=== PATIENT | male | born 1965 | race African-American/Black ===

== ENCOUNTER 2016-11-11 19:34 | Emergency (ER) | payer MEDICARE, MEDICAID ==
[2016-11-11] MEDS ORDERED: METOPROLOL TART 25 MG TABLET As Ordered ONE (20:26)
[2016-11-11 20:36] LABS: MEAN CORPUSCULAR HEMOGLOBIN 29.3 pg (27.0-33.0); MEAN CORPUSCULAR HGB CONC 33.5 g/dl (32.0-36.5); MEAN CORPUSCULAR VOLUME 87.5 fl (80.0-96.0); RED CELL DISTRIBUTION WIDTH 14.2 % (11.5-14.5)
[2016-11-11 20:43] LABS: INR 0.94
[2016-11-11] MEDS ORDERED: MORPHINE 4 MG/ML 1ML SYRINGE As Ordered ONE ×2 (20:56→23:19)
[2016-11-11 20:59] LABS: ANION GAP 9 MEQ/L (8-16); BLOOD UREA NITROGEN 10 MG/DL (7-18); CALCIUM LEVEL 8.4 MG/DL (8.5-10.1); CARBON DIOXIDE LEVEL 26 MEQ/L (21-32); CHLORIDE LEVEL 107 MEQ/L (98-107); CREATININE FOR GFR 0.88 MG/DL (0.70-1.30); GLOMERULAR FILTRATION RATE > 60.0 (>56); GLUCOSE, FASTING 109 MG/DL (70-105); POTASSIUM SERUM 3.3 MEQ/L (3.5-5.1); SODIUM LEVEL 142 MEQ/L (136-145)
[2016-11-11] MEDS ORDERED: ISOVUE-370 76% 100ML VIAL (Q9967) As Ordered ONE (21:56)
[2016-11-11] MEDS ORDERED: POTASSIUM CHLORIDE 10 MEQ SR TABLET As Ordered ONE (22:11)
--- NOTE | 2016-11-11 23:10 | REPUSA ---
CT angiogram of the chest Clinical statement: Chest pain and shortness of breath. Technique: Multiple axial CT images were obtained from the thoracic inlet through the upper abdomen a fter a bolus administration of nonionic intravenous contrast. Coronal and sagittal reconstructions we re also obtained. No comparison is available. Findings: The pulmonary arteries are well-opacified with contrast, with no intraluminal filling defec ts to suggest embolism. The thoracic aorta is unremarkable. Thyroid gland is within normal limits. Th ere is no thoracic lymphadenopathy. There are no pericardial or pleural effusions. The lungs are cheryl r. Limited imaging of the upper abdomen is unremarkable. There are large simple bilateral renal cysts . There are no suspicious osseous lesions. Impression: Unremarkable CT examination of the chest. No evidence of pulmonary embolism.
--- NOTE | 2016-11-11 23:19 | REP ---
Clinical: Chest pain . Comparison: None. Findings: The mediastinum and cardiac silhouette are stable and within normal limits for portable technique. The lung guerra are clear without acute consolidation, effusion, or pneumothorax. Skeletal structures are intact. Impression: No acute consolidation or cardiopulmonary process appreciated. Signed by Victor M Smith MD 11/11/2016 11:11 P
[2016-11-12] MEDS ORDERED: HYDROmorphone HCL 1 MG/ML SYRINGE (J1170) As Ordered ONE (01:13)
[2016-11-12] MEDS ORDERED: cloNIDine 0.2 MG TAB As Ordered ONE (06:02)
--- NOTE | 2016-11-12 06:26 | EDDOCDS ---
Physician Documentation [facility] Name: Robinson Barajas Age: 51 yrs Sex: Male : 1965 Arrival Date: 11/11/2016 Time: 19:34 Bed OBSERVATION Private MD: Disposition: 11/12/16 04:53 Discharged to Home/Self Care. Impression: Chest pain, unspecified, Unspecified mood [affective] disorder. - Condition is Stable. - Medication Reconciliation, Local Pharmacy Hours form. - Follow up: Private Physician; When: Call to arrange an appointment; Reason: Recheck today's complaints. - Problem is chronic. - Symptoms have improved. Historical: - Allergies: Geodon; Latex, Natural Rubber; Nitroglycerin; Tylenol; Motrin; Prolixin; turkey (Anaphylaxis); - Home Meds: 1. aspirin 81 mg Oral TbEC 1 tab once daily 2. Coreg 25 mg Oral tab 1 tab 2 times per day 3. Ativan 1 mg Oral tab 1 tab 3 times per day 4. Celexa 20 mg Oral tab 1 tab once daily - PMHx: Depression; Hypertension; Anxiety; - PSHx: umbilical hernia repair; - Social history: Smoking status: Patient uses tobacco products, heavy tobacco smoker. No barriers to communication noted, The patient speaks fluent Irish, Speaks appropriately for age. - Family history: Not pertinent. - : The pt / caregiver states he / she is not on anticoagulants. Home medication list is obtained from the patient. - Exposure Risk Screening:: None identified. Vital Signs: 11/11 19:37 BP 218 / 106; Pulse 90; Resp 18; Temp 97.1; Pulse Ox 98% on R/A; Weight 176.9 kg / 390 dem1 lbs; Height 6 ft. 3 in. (190.50 cm) (R); Pain 6/10; 19:53 BP 166 / 94 (auto/); af2 19:55 Pulse 76 MON; Pulse Ox 95% ; af2 20:18 BP 161 / 77 (auto/); af2 20:18 Pulse 78 MON; af2 20:23 BP 150 / 73 (auto/); af2 20:26 Pulse 84 MON; Pulse Ox 97% ; af2 20:43 Pulse 78 MON; Pulse Ox 95% ; af2 20:43 BP 179 / 98 (auto/); af2 20:53 BP 171 / 104 (auto/); af2 20:54 Pulse 78 MON; Resp 18 S; Pulse Ox 95% on R/A; af2 21:08 BP 171 / 109 (auto/); af2 21:09 Pulse 74 MON; Resp 18 S; Pulse Ox 95% on R/A; af2 22:14 BP 176 / 115 (auto/); af2 22:15 Pulse 68 MON; Resp 18 S; Pulse Ox 96% on R/A; af2 22:29 BP 158 / 77 (auto/); af2 22:30 Pulse 68 MON; Resp 18 S; Pulse Ox 96% on R/A; af2 22:44 BP 181 / 101 (auto/); af2 22:45 Pulse 68 MON; Resp 18 S; Pulse Ox 96% on R/A; af2 22:59 BP 179 / 102 (auto/); af2 23:00 Pulse 68 MON; Pulse Ox 95% ; af2 23:14 BP 178 / 113 (auto/); af2 23:14 Pulse 70 MON; af2 23:29 BP 176 / 91 (auto/); af2 23:29 Pulse 66 MON; af2 23:44 BP 170 / 89 (auto/); af2 23:45 Pulse 66 MON; Resp 18 S; af2 23:59 BP 169 / 102 (auto/); af2 01 00:00 Pulse 66 MON; af2 00:14 BP 170 / 104 (auto/); af2 00:15 Pulse 68 MON; af2 00:29 BP 169 / 107 (auto/); af2 00:30 Pulse 68 MON; af2 06:05 BP 198 / 102; Pulse 67; Resp 18; Pulse Ox 96% on R/A; slm 06:24 BP 187 / 99; slm 11/11 19:37 Body Mass Index 48.75 (176.90 kg, 190.50 cm) dem1 MDM: 11/11 19:40 ECG WITH READING ER PHYS+CARDIAG ordered. EDMS 19:43 IV Saline Lock ordered. cs11 19:44 CBC Ordered. EDMS 19:44 MED Profile Ordered. EDMS 19:44 Pt & Aptt Ordered. EDMS 19:44 Cardiac Marker Panel Ordered. EDMS 19:45 Chest, 1 View Ordered. EDMS 20:18 Metoprolol (Tartrate) 25 mg PO once ordered. cs11 20:55 morphine 4 mg IVP once ordered. cs11 21:26 MED Profile Reviewed. cs11 21:26 Pt & Aptt Reviewed. cs11 21:26 CBC Reviewed. cs11 21:26 Cardiac Marker Panel Reviewed. cs11 21:27 Potassium Chloride Extended Release Tablet 40 mEq PO once ordered. cs11 21:28 CT Chest Angio R/O PE Ordered. EDMS 21:34 Financial registration complete. zo 21:41 [facility] [place] Payment Agreement was scanned into [employer] and attached to record. zo 22:51 ECG WITH READING ER PHYS+CARDIAG ordered. EDMS 23:11 morphine 4 mg IVP once ordered. cs11 11/12 00:20 ECG WITH READING ER PHYS+CARDIAG ordered. EDMS 00:21 Cardiac Marker Panel Ordered. EDMS 01:04 Dilaudid - HYDROmorphone 1 mg IVP once ordered. cs11 01:45 Cardiac Marker Panel Reviewed. cs11 01:45 Chest, 1 View Reviewed. cs11 01:45 CT Chest Angio R/O PE Reviewed. cs11 01:46 Consult PFS/PSA/Socail Worker: Cleared medically for eval ordered. cs11 02:38 Consult PFS/PSA/Socail Worker: Cleared medically for eval complete. cl 04:59 REGULAR DIET PLASTIC RODAS+DIET ordered. EDMS 06:01 cloNIDine 0.2 mg PO once ordered. cs11 Administered Medications: 11/11 20:29 Drug: Metoprolol 25 mg [metoprolol tartrate 25 mg tablet (1 tabs)] Route: PO; af2 21:01 Drug: morphine 4 mg [morphine 4 mg/mL intravenous cartridge (1 mL)] Route: IVP; Site: af2 left antecubital; 22:17 Drug: Potassium Chloride 40 mEq [potassium chloride ER 10 mEq tablet,extended release af2 (4 tabs)] Route: PO; 23:23 Drug: morphine 4 mg [morphine 4 mg/mL intravenous cartridge (1 mL)] Route: IVP; Site: af2 left upper arm; 11/12 01:21 Drug: Dilaudid - HYDROmorphone 1 mg [hydromorphone 1 mg/mL injection syringe (1 mL)] af2 Route: IVP; Site: left upper arm; 06:04 Drug: cloNIDine 0.2 mg [clonidine HCl 0.2 mg tablet (1 tabs)] Route: PO; slm Signatures: Dispatcher [employer] EDMS Candelario Aguirre, PSA PSA cl Felice, Darius Briceno DO DO cs11 Pillo Grider,RN RN natasahb Isa Dowling,GEOTHERMAL HEAT PUMP MACHINIST GEOTHERMAL HEAT PUMP MACHINIST slm Rachna Valdes,RN RN af2 The chart was reviewed and I authenticate all verbal orders and agree with the evaluation and treatment provided.Attachments: 11/11 21:41 [facility] [place] Payment Agreement zo MTDD
--- NOTE | 2016-11-12 06:26 | EDDOCDS ---
Nurse's Notes [facility] Name: Robinson Barajas Age: 51 yrs Sex: Male : 1965 Arrival Date: 11/11/2016 Time: 19:34 Bed OBSERVATION Private MD: Diagnosis: Chest pain, unspecified;Unspecified mood [affective] disorder Presentation: 11/11 19:40 Presenting complaint: Patient states: Patient reports having chest pain which is jmb present for ten minutes with numbness down left arm. Patient reports having history of chest pain but the numbness is new. Aspirin was not taken prior to arrival. Aspirin was taken MANAGER TELEMETRY. Patient took 4 aspirin 81 mg. Adult Sepsis Screening: The patient does not have new or worsening altered mentation. Patient's respiratory rate is less than 22. Systolic blood pressure is greater than 100. Patient has a qSOFA score of 0- Negative Sepsis Screen. Suicide/Homicide risk assessment- the patient denies having any suicidal and/or homicidal ideations and does not present with any other emotional, behavioral or mental health complaints. Status: Patient is not a truck service technician or dependent. Transition of care: patient was not received from another setting of care. 19:40 Acuity: SON Level 3 jmb 19:40 Method Of Arrival: Wheelchair b Triage Assessment: 19:43 General: Appears uncomfortable, Behavior is appropriate for age, cooperative. Pain: jmb Location: chest Pain currently is 7 out of 10 on a pain scale. Pt Declines HIV testing. Neurological: Level of Consciousness is awake, alert, obeys commands, Oriented to person, place, time, Speech is normal, Facial symmetry appears normal, Facial symmetry: tongue is midline. Cardiovascular: Chest pain is described as Pain is 7 out of 10 on a pain scale. radiates to left episodes are intermittent began 30 minutes prior to arrival. Respiratory: Airway is patent Respiratory effort is even, Respiratory pattern is regular. GI: Abdomen is obese. Derm: Skin is normal. Musculoskeletal: Range of motion intact in all extremities. Historical: - Allergies: Geodon; Latex, Natural Rubber; Nitroglycerin; Tylenol; Motrin; Prolixin; turkey (Anaphylaxis); - Home Meds: 1. aspirin 81 mg Oral TbEC 1 tab once daily 2. Coreg 25 mg Oral tab 1 tab 2 times per day 3. Ativan 1 mg Oral tab 1 tab 3 times per day 4. Celexa 20 mg Oral tab 1 tab once daily - PMHx: Depression; Hypertension; Anxiety; - PSHx: umbilical hernia repair; - Social history: Smoking status: Patient uses tobacco products, heavy tobacco smoker. No barriers to communication noted, The patient speaks fluent Belizean, Speaks appropriately for age. - Family history: Not pertinent. - : The pt / caregiver states he / she is not on anticoagulants. Home medication list is obtained from the patient. - Exposure Risk Screening:: None identified. Screenin:12 Screening information is obtained from the patient. Fall risk: No risks identified. af2 Assistance ADL's: requires no assistance with activities of daily living. Abuse/DV Screen: The patient / caregiver reports he/she is: not in a situation that causes fear, pain or injury. Nutritional screening: No deficits noted. Advance Directives: Currently, there is no health care proxy. home support is adequate. Assessment: 20:10 General: Appears in no apparent distress, obese, Behavior is cooperative. Neurological: af2 Level of Consciousness is awake, alert, obeys commands, Oriented to person, place, time. Cardiovascular: Capillary refill < 3 seconds in bilateral fingers Heart tones S1 S2 present Rhythm is sinus rhythm No ectopy. Chest pain radiates to left scapula. Respiratory: Airway is patent Respiratory effort is even, unlabored, Breath sounds are diminished bilaterally. Derm: Skin is diaphoretic, Skin is normal. 21:01 General: Appears in no apparent distress, Behavior is cooperative, upon flushing piv, af2 iv noted to infiltrate. piv removed, dressing applied. . 22:00 General: Appears in no apparent distress, Behavior is cooperative. Neurological: Level af2 of Consciousness is awake, alert, obeys commands, Oriented to person, place, time. Cardiovascular: Rhythm is sinus rhythm No ectopy. Respiratory: Airway is patent Respiratory effort is even, unlabored. Derm: Skin is diaphoretic, Skin is normal. 22:28 General: pt transported down to CT at this time, tolerated procedure well. PIV patent, af2 free of edema and erythema.. 22:52 General: pt reports pain 10/10, provider aware at this time.. af2 23:30 General: pt requests "is there a psychiatrist that I can see while I am here?" pt af2 states to this law writer that he has been having "some ongoing issues with depression, I've been hearing voices, last week they were telling me to kill myself." pt denies current SI, states he continues to hear voices. Dr. Norris notified of this information. . Neurological: Level of Consciousness is awake, alert, obeys commands, Oriented to person, place, time. Cardiovascular: Rhythm is sinus rhythm No ectopy. Respiratory: Airway is patent Respiratory effort is even, unlabored. Derm: Skin is normal. 11/12 00:30 General: Appears in no apparent distress, Behavior is cooperative, pt states to this af2 law writer that his pain has not improved after morphine. dr Norris aware.. 01:30 General: Appears in no apparent distress, Behavior is cooperative. Neurological: Level af2 of Consciousness is awake, alert. Respiratory: Airway is patent Respiratory effort is even, unlabored. Derm: Skin is normal. 01:53 General: pt moved back to [facility] with belongings.. af2 02:04 General: Appears in no apparent distress, comfortable, Behavior is cooperative, slm pleasant. General: pt ambulated to bathroom requesting washcloth to wash up, pt also request food . pt calm cooperative security observing . Neurological: Level of Consciousness is awake, alert, obeys commands. Respiratory: Airway is patent Respiratory effort is even, unlabored. 03:11 General: Appears in no apparent distress, comfortable, to be sleeping. Behavior is slm cooperative, quiet. General: security observing . Respiratory: Airway is patent Respiratory effort is even, unlabored. 03:55 General: Appears in no apparent distress, comfortable, to be sleeping. Behavior is slm quiet. General: security observing. Respiratory: Airway is patent Respiratory effort is even, unlabored. 05:00 General: Appears in no apparent distress, comfortable, Behavior is appropriate for age, slm cooperative, pleasant. General: Appears obese. Neurological: No deficits noted. Respiratory: Airway is patent Respiratory effort is even, unlabored. Derm: Skin is normal. 06:05 General: Appears in no apparent distress, comfortable, Behavior is cooperative, DR clark aware of BP meds given at this time . 06:23 Reassessment: Patient appears in no apparent distress at this time. General: pt d/c at [facility] this time aware of BP pt reports he will take his B/P meds when he gets home . Neurological: Level of Consciousness is awake, alert, obeys commands, Gait is steady, Speech is normal. Respiratory: Airway is patent Respiratory pattern is regular. Mental Health Eval: 01:59 Referral Information: Evaluation referral is generated by the patient himself / cl herself. The patient was referred for evaluation because Pt initially presents to ED c/o chst pain, while receiving tx for CP pt voiced ongoing depression, recent AH/SI. . 02:40 Status: The patient is not a truck service technician or dependent. [facility]: The patient is not an established patient of [facility]. Subjective: The patients chief complaint is Pt reports he has been visiting his son at [place] since this past Tuesday, is from [facility], was at bus station last evening with intention of returning home when he began having sx's of chest pain/dizziness, son brought him to ED. Pt is pleasant and cooperative, denies SI/HI at this time, reports hx of depression/anxiety with prior psych admissions in [place] and [facility], denies any prior attempts at self harm. Pt reports feeling overwhelmed in past several months due to several stressors including of mother last month, lost 7 yo son to car accident 07/23, and stress while living with his GF whose mother has Alzheimers. Pt reports he "just needed to talk to someone" while here in ED. Pt denies SI/HI/AH/VH, denies any substance abuse issues, can easily CFS, vented well about his stressors. Pt reports his therapist at [facility] left 3 months ago and is still waiting to be assigned to new therapist, is s/w upset about this as he had good relationship with last therapist but states he will pursue this when he returns to [place]. Pt plans on catching bus later this morning to return home, has bus schedule and financial means to return home, denies any other needs/concerns at this time. . Delusions are denied. Patient's mood is anxious, Hallucinations are denied. Mental Health history: anxiety, Bipolar Disorder, depression, psychosis, Mental Health Admissions: Several in past to hospitals in [facility] and [place], also [facility]...all for "depression". Current Outpatient Mental Health Services: Therapist / Agency: [facility].. Current living environment is The patient currently lives with his / her significant other, . The patient is . Patient presents to Emergency Department with the following symptoms within the past 2 weeks: anxiety, depressed mood, sleep disturbance - erratic. Substance abuse: Pt denies. Mental status exam: Patients appearance is obese, Patient's behavior is cooperative, Speech is normal. Affect is appropriate. Mood is anxious. Hallucinations are denied. Appetite is normal. Memory is good. Energy level is tires easily. Content of thought is normal. Thought process is intact. Cognitive level is oriented to person, place, time and situation Patient's insight is good. Judgement is good. Rapport with interviewer is good. Suicidal Ideation is denied. Homicidal ideation is denied. 03:17 Disposition: Medically cleared for disposition by Darius Norris DO Psychiatric Consult cl is deferred per ED physician, Dr Norris. Disposition: The patient has a safe destination which is pt [facility], requests d/c to bus station later this morning so he can return home to [place], will f/u at [facility] where he is currently a client. [facility] Admission Criteria: Not Applicable. [place] because the patient does not display any suicidal or homicidal ideations and does not pose a risk to self or others. DSM-V Differential Diagnosis: Unspecified Anxiety Disorder (F41.9). Insurance Pre-Certification: Not Required. Vital Signs: 11/11 19:37 BP 218 / 106; Pulse 90; Resp 18; Temp 97.1; Pulse Ox 98% on R/A; Weight 176.9 kg; dem1 Height 6 ft. 3 in. (190.50 cm) (R); Pain 6/10; 19:53 BP 166 / 94 (auto/); af2 19:55 Pulse 76 MON; Pulse Ox 95% ; af2 20:18 BP 161 / 77 (auto/); af2 20:18 Pulse 78 MON; af2 20:23 BP 150 / 73 (auto/); af2 20:26 Pulse 84 MON; Pulse Ox 97% ; af2 20:43 Pulse 78 MON; Pulse Ox 95% ; af2 20:43 BP 179 / 98 (auto/); af2 20:53 BP 171 / 104 (auto/); af2 20:54 Pulse 78 MON; Resp 18 S; Pulse Ox 95% on R/A; af2 21:08 BP 171 / 109 (auto/); af2 21:09 Pulse 74 MON; Resp 18 S; Pulse Ox 95% on R/A; af2 22:14 BP 176 / 115 (auto/); af2 22:15 Pulse 68 MON; Resp 18 S; Pulse Ox 96% on R/A; af2 22:29 BP 158 / 77 (auto/); af2 22:30 Pulse 68 MON; Resp 18 S; Pulse Ox 96% on R/A; af2 22:44 BP 181 / 101 (auto/); af2 22:45 Pulse 68 MON; Resp 18 S; Pulse Ox 96% on R/A; af2 22:59 BP 179 / 102 (auto/); af2 23:00 Pulse 68 MON; Pulse Ox 95% ; af2 23:14 BP 178 / 113 (auto/); af2 23:14 Pulse 70 MON; af2 23:29 BP 176 / 91 (auto/); af2 23:29 Pulse 66 MON; af2 23:44 BP 170 / 89 (auto/); af2 23:45 Pulse 66 MON; Resp 18 S; af2 23:59 BP 169 / 102 (auto/); af2 01/06 00:00 Pulse 66 MON; af2 00:14 BP 170 / 104 (auto/); af2 00:15 Pulse 68 MON; af2 00:29 BP 169 / 107 (auto/); af2 00:30 Pulse 68 MON; af2 06:05 BP 198 / 102; Pulse 67; Resp 18; Pulse Ox 96% on R/A; slm 06:24 BP 187 / 99; slm 01/05 19:37 Body Mass Index 48.75 (176.90 kg, 190.50 cm) dem1 Vitals: 11/11 19:37 Log In Time: November 11, 2016 at 19:33. RN notified that patient meets Red Flag dem1 criteria. ED Course: 19:35 Patient visited by Wendy Levine. dem1 19:35 Patient moved to Waiting dem1 19:37 Rachna Valdes,RN is Primary Nurse. dem1 19:37 Patient moved to 10 dem1 19:41 Triage Initiated b 19:42 Darius Norris DO is Attending Physician. 11 19:42 Patient visited by Darius Norris DO. cs11 19:58 EKG done. (by ED staff). Reviewed by Darius Norris DO. mdr 19:59 Patient visited by Esteban Chambers PCA. mdr 20:11 The patient / caregiver is instructed regarding the plan of care and ED course. Cardiac af2 monitor on. Pulse ox on. NIBP on. 20:11 Missed attempts: 20 gauge X 2 in right antecubital area, in left antecubital area. af2 20:12 Patient visited by Rachna Valdes RN. af2 20:28 Inserted saline lock: 18 gauge in left antecubital area and blood collected. The nn1 patient tolerated the procedure well. 20:28 CBC Sent. nn1 20:28 MED Profile Sent. nn1 20:28 Pt & Aptt Sent. nn1 20:28 Cardiac Marker Panel Sent. nn1 20:28 Missed attempts: 20 gauge X 1 in left wrist. nn1 20:30 Patient visited by Rachna Valdes RN. af2 21:00 Patient visited by Rachna Valdes RN. af2 21:02 Patient visited by Rachna Valdes RN. af2 21:32 Patient visited by Rachna Valdes RN. af2 21:41 [facility] Payment Agreement was scanned into [employer]ide[employer] and attached to record. zo 22:03 Patient visited by Rachna Valdes RN. af2 22:03 Missed attempts: 18 gauge X 2 in right hand, in right antecubital area. kas2 22:18 Patient visited by Rachna Valdes RN. af2 22:29 Patient visited by Rachna Valdes RN. af2 22:53 Patient visited by Rachna Valdes RN. af2 22:54 Patient visited by Rachna Valdes RN. af2 23:00 Patient visited by Danna Norris PCA. ls3 23:00 EKG done. (by ED staff). Reviewed by Darius Norris DO. ls3 23:33 Patient visited by Rachna Valdes RN. af2 23:49 CT Chest Angio R/O PE Returned. EDMS 23:49 Chest, 1 View Returned. EDMS 23:54 Patient visited by Rachna Valdes RN. af2 11/12 00:28 Patient visited by Rachna Valdes RN. af2 00:32 Patient visited by Rachna Valdes RN. af2 00:33 EKG done. (by ED staff). Reviewed by Darius Norris DO. ls3 01:05 Patient visited by Rachna Valdes RN. af2 01:05 Cardiac Marker Panel Sent. af2 01:52 Patient moved to [facility] sls1 01:54 Patient visited by Rachna Valdes RN. af2 01:54 Discontinued IV lock intact, bleeding controlled, pressure dressing applied, No af2 redness/swelling at site. No procedures done that require assistance. 02:06 Patient visited by Isa Dowling LPN. slm 02:07 Patient moved to OBSERVATION cs11 02:13 Patient visited by Rachna Valdes RN. af2 02:15 Pt greeted and oriented to ED. Patient advised of names of staff involved in care, kb5 location of call srivastava, wait times and NPO status. Patient has correct armband on for positive identification. Placed in psych safe attire. Bed in low position. Call light in reach. Side rails up X 1. Security observing. Property removed, inventory done, secured in belongings bag- Placed in Locker 4. secure belongings bag, Secure bag Number [id number], Placed Locker 9. Patient not placed in psych safe attire prior to transfer to [facility] from room 10. . Door closed. Noise minimized. Visitors limited. Diet tray given. Warm blanket given. 02:30 Psych Safety Check: Location: Psych Room. Visual Assessment: Cooperative. kb5 02:45 Psych Safety Check: Location: Psych Room. Visual Assessment: Cooperative. kb5 03:00 Patient visited by Froilan Steele PCA. kb5 03:00 Psych Safety Check: Location: Psych Room. Visual Assessment: Cooperative. kb5 03:11 Patient visited by Isa Dowling LPN. slm 03:15 Psych Safety Check: Location: Psych Room. Visual Assessment: Cooperative. kb5 03:30 Psych Safety Check: Location: Psych Room. Visual Assessment: Cooperative. kb5 03:45 Patient visited by Froilan Steele PCA. kb5 03:45 Psych Safety Check: Location: Psych Room. Visual Assessment: Cooperative. kb5 03:55 Patient visited by Isa Dowling LPN. slm 04:00 Psych Safety Check: Location: Psych Room. Visual Assessment: Cooperative. kb5 04:11 Patient visited by Padilla Steeleistopher, BPM SOLUTION ARCHITECT. kb5 04:15 Psych Safety Check: Location: Psych Room. Visual Assessment: Cooperative. kb5 04:18 Patient visited by Xenia, Froilan, BPM SOLUTION ARCHITECT. kb5 04:30 Patient visited by Xenia, Froilan, BPM SOLUTION ARCHITECT. kb5 04:30 Psych Safety Check: Location: Psych Room. Visual Assessment: Cooperative. kb5 04:45 Patient visited by Padilla Steeleistopher, BPM SOLUTION ARCHITECT. kb5 04:45 Psych Safety Check: Location: Psych Room. Visual Assessment: Cooperative. kb5 05:00 Psych Safety Check: Location: Psych Room. Visual Assessment: Cooperative. kb5 05:06 Patient visited by Padilla Steeleistopher, BPM SOLUTION ARCHITECT. kb5 05:15 Psych Safety Check: Location: Psych Room. Visual Assessment: Cooperative. kb5 05:20 Patient visited by Ana Steeleopher, BPM SOLUTION ARCHITECT. kb5 05:30 Patient visited by Padilla Steeleistopher, BPM SOLUTION ARCHITECT. kb5 05:30 Psych Safety Check: Location: Psych Room. Visual Assessment: Cooperative. kb5 05:45 Psych Safety Check: Location: Psych Room. Visual Assessment: Cooperative. kb5 05:49 Patient visited by Ana Steeleopher BPM SOLUTION ARCHITECT. kb5 06:00 Psych Safety Check: Location: Psych Room. Visual Assessment: Cooperative. kb5 06:06 Patient visited by Isa Dowling LPN. slm 06:06 Patient visited by Froilan Steele BPM SOLUTION ARCHITECT. kb5 06:15 Psych Safety Check: Location: Psych Room. Visual Assessment: Cooperative. kb5 06:20 Patient visited by Froilan Steele BPM SOLUTION ARCHITECT. kb5 06:25 Patient visited by Isa Dowling LPN. slmckenna Administered Medications: 11/11 20:29 Drug: Metoprolol 25 mg [metoprolol tartrate 25 mg tablet (1 tabs)] Route: PO; af2 21:01 Drug: morphine 4 mg [morphine 4 mg/mL intravenous cartridge (1 mL)] Route: IVP; Site: af2 left antecubital; 22:17 Drug: Potassium Chloride 40 mEq [potassium chloride ER 10 mEq tablet,extended release af2 (4 tabs)] Route: PO; 23:23 Drug: morphine 4 mg [morphine 4 mg/mL intravenous cartridge (1 mL)] Route: IVP; Site: af2 left upper arm; 11/12 01:21 Drug: Dilaudid - HYDROmorphone 1 mg [hydromorphone 1 mg/mL injection syringe (1 mL)] af2 Route: IVP; Site: left upper arm; 06:04 Drug: cloNIDine 0.2 mg [clonidine HCl 0.2 mg tablet (1 tabs)] Route: PO; slm Order Results: Lab Order: CBC; SPEC'M 11/11/16 20:24 Test: WHITE BLOOD COUNT; Value: 8.0; Range: 4.0-10.0; Units: K/mm3; Status: F Test: RED BLOOD COUNT; Value: 5.01; Range: 4.30-6.10; Units: M/mm3; Status: F Test: HEMOGLOBIN; Value: 14.7; Range: 14.0-18.0; Units: g/dl; Status: F Test: HEMATOCRIT; Value: 43.8; Range: 42.0-52.0; Units: %; Status: F Test: MEAN CORPUSCULAR VOLUME; Value: 87.5; Range: 80.0-96.0; Units: fl; Status: F Test: MEAN CORPUSCULAR HEMOGLOBIN; Value: 29.3; Range: 27.0-33.0; Units: pg; Status: F Test: MEAN CORPUSCULAR HGB CONC; Value: 33.5; Range: 32.0-36.5; Units: g/dl; Status: F Test: RED CELL DISTRIBUTION WIDTH; Value: 14.2; Range: 11.5-14.5; Units: %; Status: F Test: PLATELET COUNT, AUTOMATED; Value: 168; Range: 150-450; Units: k/mm3; Status: F Lab Order: MED Profile; SPEC'M 11/11/16 20:24 Test: GLUCOSE, FASTING; Value: 109; Range: 70-105; Abnormal: Above high normal; Units: MG/DL; Status: F Test: BLOOD UREA NITROGEN; Value: 10; Range: 7-18; Units: MG/DL; Status: F Test: CREATININE FOR GFR; Value: 0.88; Range: 0.70-1.30; Units: MG/DL; Status: F Test: GLOMERULAR FILTRATION RATE; Value: > 60.0; Range: >56; Status: F Test: SODIUM LEVEL; Value: 142; Range: 136-145; Units: MEQ/L; Status: F Test: POTASSIUM SERUM; Value: 3.3; Range: 3.5-5.1; Abnormal: Below low normal; Units: MEQ/L; Status: F Test: CHLORIDE LEVEL; Value: 107; Range: 98-107; Units: MEQ/L; Status: F Test: CARBON DIOXIDE LEVEL; Value: 26; Range: 21-32; Units: MEQ/L; Status: F Test: ANION GAP; Value: 9; Range: 8-16; Units: MEQ/L; Status: F Test: CALCIUM LEVEL; Value: 8.4; Range: 8.5-10.1; Abnormal: Below low normal; Units: MG/DL; Status: F Test Note: ; Units are mL/min/1.73 m2 Chronic Kidney Disease Staging per NKF: Stage I & II GFR >=60 Normal to Mildly Decreased Stage III GFR 30-59 Moderately Decreased Stage IV GFR 15-29 Severely Decreased Stage V GFR <15 Very Little GFR Left ESRD GFR <15 on KNOWLEDGE MANAGER Lab Order: Pt & Aptt; SPEC'M 11/11/16 20:24 Test: PROTHROMBIN TIME; Value: 12.7; Range: 12.3-14.5; Units: SECONDS; Status: F Test: INR; Value: 0.94; Status: F Test: PARTIAL THROMBOPLASTIN TIME; Value: 26.1; Range: 26.6-37.1; Abnormal: Below low normal; Units: SECONDS; Status: F Test Note: ; THERAPUTIC HUMAN INR VALUES INDICATIONS NORMAL RANGES PROPHYLAXIS/TREATMENT OF: VENOUS THROMBOSIS 2.0-3.0 PULMONARY EMBOLISM 2.0-3.0 PREVENTION OF SYSTEMIC EMBOLISM FROM: TISSUE HEART VALVES 2.0-3.0 ACUTE MYOCARDIAL INFARCTION 2.0-3.0 VALVULAR HEART DISEASE 2.0-3.0 ATRIAL FIBRILLATION 2.0-3.0 MECHANICAL VALVES(HIGH RISK) 2.5-3.5 RECURRENT MYOCARDIAL INFARCTION 2.5-3.5 Lab Order: Cardiac Marker Panel; SPEC'M 11/11/16 20:24 Test: CPK CREATINE PHOSPHOKINASE; Value: 158; Range: 39-308; Units: U/L; Status: F Test: CK-MB VALUE MASS; Value: 1.3; Range: 0.0-3.6; Units: NG/ML; Status: F Test: MB/CK RELATIVE INDEX; Value: 0.82; Range: < OR =4; Status: F Test: TROPONIN I; Value: < 0.02; Range: < 0.10; Units: NG/ML; Status: F Test Note: ; DIAGNOSIS CRITERIA MMB ng/ml Relative Index (RI) NON-AMI < or = 5 N/A CERVANTES ZONE > 5 < or = 4 AMI > 5 > 4 Lab Order: Cardiac Marker Panel; SPEC'M 11/12/16 00:57 Test: CPK CREATINE PHOSPHOKINASE; Value: 137; Range: 39-308; Units: U/L; Status: F Test: CK-MB VALUE MASS; Value: 1.3; Range: 0.0-3.6; Units: NG/ML; Status: F Test: MB/CK RELATIVE INDEX; Value: 0.94; Range: < OR =4; Status: F Test: TROPONIN I; Value: < 0.02; Range: < 0.10; Units: NG/ML; Status: F Test Note: ; DIAGNOSIS CRITERIA MMB ng/ml Relative Index (RI) NON-AMI < or = 5 N/A CERVANTES ZONE > 5 < or = 4 AMI > 5 > 4 Radiology Order: Chest, 1 View Test: Chest, 1 View REASON FOR EXAMINATION: Chest Pain; Clinical: Chest pain .; ; Comparison: None.; ; Findings:; The mediastinum and cardiac silhouette are stable and within normal limits for; portable technique. The lung guerra are clear without acute consolidation,; effusion, or pneumothorax. Skeletal structures are intact.; ; Impression:; No acute consolidation or cardiopulmonary process appreciated.; ; ; Signed by; Victor M Smith MD 11/11/2016 11:11 P; Radiology Order: CT Chest Angio R/O PE Test: CT Chest Angio R/O PE REASON FOR EXAMINATION: Chest Pain; ; CT angiogram of the chest; Clinical statement: Chest pain and shortness of breath.; Technique: Multiple axial CT images were obtained from the thoracic inlet through the upper abdomen a; fter a bolus administration of nonionic intravenous contrast. Coronal and sagittal reconstructions we; re also obtained.; No comparison is available.; Findings: The pulmonary arteries are well-opacified with contrast, with no intraluminal filling defec; ts to suggest embolism. The thoracic aorta is unremarkable. Thyroid gland is within normal limits. Th; ere is no thoracic lymphadenopathy. There are no pericardial or pleural effusions. The lungs are cheryl; r. Limited imaging of the upper abdomen is unremarkable. There are large simple bilateral renal cysts; . There are no suspicious osseous lesions.; Impression: Unremarkable CT examination of the chest. No evidence of pulmonary embolism.; ; Outcome: 02:06 Property removed, inventory done, secured in belongings bag- placed in locked locker. [facility] 04:53 Discharge ordered by Provider. 11 06:06 No special radiology studies were completed. m 06:24 Discharge Assessment: Patient awake, alert and oriented x 3. No cognitive and/or slm functional deficits noted. Patient verbalized understanding of disposition instructions. Patient awake and alert. patient administered narcotics - yes. Pt provided with safe discharge. The following High Risk Discharge criteria are identified: Yes, pt seen by Akil Aguirre and no concerns by given a cab slip to bus station to return home . Discharged to home ambulatory. Condition: good Condition: improved. Discharge instructions given to patient, Instructed on discharge instructions, follow up and referral plans. Demonstrated understanding of instructions, Pt was receptive of discharge instructions/ teaching. 06:25 Patient left the ED. [facility] Signatures: Dispatcher [employer] EDMS Candelario Aguirre, PSA PSA cl Felice, Zoeann zo Xenia, Froilan, BPM SOLUTION ARCHITECT BPM SOLUTION ARCHITECT kb5 Padmini Keith, RN RN sls1 Wendy Levine dem1 Darius Norris DO DO cs11 Pillo Grider,RN RN Isa Wren,[facility] [employer]Y MANAGER slm Rachna Valdes,RN RN af2 Kala Angel,RN RN nn1 Danna Norris, BPM SOLUTION ARCHITECT BPM SOLUTION ARCHITECT ls3 Esteban Chambers, BPM SOLUTION ARCHITECT BPM SOLUTION ARCHITECT mdr Nguyen Moon,RN RN kas2 MTDD
--- NOTE | 2016-11-13 08:23 | ECGEPIP ---
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
--- NOTE | 2016-11-13 08:25 | ECGEPIP ---
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
--- NOTE | 2016-11-13 08:26 | ECGEPIP ---
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
--- NOTE | 2016-11-14 07:27 | EDDOCDS ---
Nurse's Notes [facility] Name: Ton Mo Age: 51 yrs Sex: Male : 1965 Arrival Date: 11/11/2016 Time: 19:34 Bed OBSERVATION Private MD: Diagnosis: Chest pain, unspecified;Unspecified mood [affective] disorder Presentation: 11/11 19:40 Presenting complaint: Patient states: Patient reports having chest pain which is jmb present for ten minutes with numbness down left arm. Patient reports having history of chest pain but the numbness is new. Aspirin was not taken prior to arrival. 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 Patient took 4 aspirin 81 mg. Adult Sepsis Screening: The patient does not have new or worsening altered mentation. Patient's respiratory rate is less than 22. Systolic blood pressure is greater than 100. Patient has a qSOFA score of 0- Negative Sepsis Screen. Suicide/Homicide risk assessment- the patient denies having any suicidal and/or homicidal ideations and does not present with any other emotional, behavioral or mental health complaints. Status: Patient is not a conference services director or dependent. Transition of care: patient was not received from another setting of care. 19:40 Acuity: SON Level 3 jmb 19:40 Method Of Arrival: Wheelchair b Triage Assessment: 19:43 General: Appears uncomfortable, Behavior is appropriate for age, cooperative. Pain: jmb Location: chest Pain currently is 7 out of 10 on a pain scale. Pt Declines HIV testing. Neurological: Level of Consciousness is awake, alert, obeys commands, Oriented to person, place, time, Speech is normal, Facial symmetry appears normal, Facial symmetry: tongue is midline. Cardiovascular: Chest pain is described as Pain is 7 out of 10 on a pain scale. radiates to left episodes are intermittent began 30 minutes prior to arrival. Respiratory: Airway is patent Respiratory effort is even, Respiratory pattern is regular. GI: Abdomen is obese. Derm: Skin is normal. Musculoskeletal: Range of motion intact in all extremities. Historical: - Allergies: Geodon; Latex, Natural Rubber; Nitroglycerin; Tylenol; Motrin; Prolixin; turkey (Anaphylaxis); - Home Meds: 1. aspirin 81 mg Oral TbEC 1 tab once daily 2. Coreg 25 mg Oral tab 1 tab 2 times per day 3. Ativan 1 mg Oral tab 1 tab 3 times per day 4. Celexa 20 mg Oral tab 1 tab once daily - PMHx: Depression; Hypertension; Anxiety; - PSHx: umbilical hernia repair; - Social history: Smoking status: Patient uses tobacco products, heavy tobacco smoker. No barriers to communication noted, The patient speaks fluent Qatari, Speaks appropriately for age. - Family history: Not pertinent. - : The pt / caregiver states he / she is not on anticoagulants. Home medication list is obtained from the patient. - Exposure Risk Screening:: None identified. Screenin:12 Screening information is obtained from the patient. Fall risk: No risks identified. af2 Assistance ADL's: requires no assistance with activities of daily living. Abuse/DV Screen: The patient / caregiver reports he/she is: not in a situation that causes fear, pain or injury. Nutritional screening: No deficits noted. Advance Directives: Currently, there is no health care proxy. home support is adequate. Assessment: 20:10 General: Appears in no apparent distress, obese, Behavior is cooperative. Neurological: af2 Level of Consciousness is awake, alert, obeys commands, Oriented to person, place, time. Cardiovascular: Capillary refill < 3 seconds in bilateral fingers Heart tones S1 S2 present Rhythm is sinus rhythm No ectopy. Chest pain radiates to left scapula. Respiratory: Airway is patent Respiratory effort is even, unlabored, Breath sounds are diminished bilaterally. Derm: Skin is diaphoretic, Skin is normal. 21:01 General: Appears in no apparent distress, Behavior is cooperative, upon flushing piv, af2 iv noted to infiltrate. piv removed, dressing applied. . 22:00 General: Appears in no apparent distress, Behavior is cooperative. Neurological: Level af2 of Consciousness is awake, alert, obeys commands, Oriented to person, place, time. Cardiovascular: Rhythm is sinus rhythm No ectopy. Respiratory: Airway is patent Respiratory effort is even, unlabored. Derm: Skin is diaphoretic, Skin is normal. 22:28 General: pt transported down to CT at this time, tolerated procedure well. PIV patent, af2 free of edema and erythema.. 22:52 General: pt reports pain 10/10, provider aware at this time.. af2 23:30 General: pt requests "is there a psychiatrist that I can see while I am here?" pt af2 states to this report writer that he has been having "some ongoing issues with depression, I've been hearing voices, last week they were telling me to kill myself." pt denies current SI, states he continues to hear voices. Dr. Mckenna notified of this information. . Neurological: Level of Consciousness is awake, alert, obeys commands, Oriented to person, place, time. Cardiovascular: Rhythm is sinus rhythm No ectopy. Respiratory: Airway is patent Respiratory effort is even, unlabored. Derm: Skin is normal. 11/12 00:30 General: Appears in no apparent distress, Behavior is cooperative, pt states to this af2 report writer that his pain has not improved after morphine. dr Mckenna aware.. 01:30 General: Appears in no apparent distress, Behavior is cooperative. Neurological: Level af2 of Consciousness is awake, alert. Respiratory: Airway is patent Respiratory effort is even, unlabored. Derm: Skin is normal. 01:53 General: pt moved back to [facility] with belongings.. af2 02:04 General: Appears in no apparent distress, comfortable, Behavior is cooperative, slm pleasant. General: pt ambulated to bathroom requesting washcloth to wash up, pt also request food . pt calm cooperative security observing . Neurological: Level of Consciousness is awake, alert, obeys commands. Respiratory: Airway is patent Respiratory effort is even, unlabored. 03:11 General: Appears in no apparent distress, comfortable, to be sleeping. Behavior is slm cooperative, quiet. General: security observing . Respiratory: Airway is patent Respiratory effort is even, unlabored. 03:55 General: Appears in no apparent distress, comfortable, to be sleeping. Behavior is slm quiet. General: security observing. Respiratory: Airway is patent Respiratory effort is even, unlabored. 05:00 General: Appears in no apparent distress, comfortable, Behavior is appropriate for age, slm cooperative, pleasant. General: Appears obese. Neurological: No deficits noted. Respiratory: Airway is patent Respiratory effort is even, unlabored. Derm: Skin is normal. 06:05 General: Appears in no apparent distress, comfortable, Behavior is cooperative, DR clark aware of BP meds given at this time . 06:23 Reassessment: Patient appears in no apparent distress at this time. General: pt d/c at [facility] this time aware of BP pt reports he will take his B/P meds when he gets home . Neurological: Level of Consciousness is awake, alert, obeys commands, Gait is steady, Speech is normal. Respiratory: Airway is patent Respiratory pattern is regular. Mental Health Eval: 01:59 Referral Information: Evaluation referral is generated by the patient himself / cl herself. The patient was referred for evaluation because Pt initially presents to ED c/o chst pain, while receiving tx for CP pt voiced ongoing depression, recent AH/SI. . 02:40 Status: The patient is not a conference services director or dependent. [facility]: The patient is not an established patient of [facility]. Subjective: The patients chief complaint is Pt reports he has been visiting his son at [place] since this past Tuesday, is from [facility], was at bus station last evening with intention of returning home when he began having sx's of chest pain/dizziness, son brought him to ED. Pt is pleasant and cooperative, denies SI/HI at this time, reports hx of depression/anxiety with prior psych admissions in [place] and [facility], denies any prior attempts at self harm. Pt reports feeling overwhelmed in past several months due to several stressors including of mother last month, lost 7 yo son to car accident 07/23, and stress while living with his GF whose mother has Alzheimers. Pt reports he "just needed to talk to someone" while here in ED. Pt denies SI/HI/AH/VH, denies any substance abuse issues, can easily CFS, vented well about his stressors. Pt reports his therapist at [facility] left 3 months ago and is still waiting to be assigned to new therapist, is s/w upset about this as he had good relationship with last therapist but states he will pursue this when he returns to [place]. Pt plans on catching bus later this morning to return home, has bus schedule and financial means to return home, denies any other needs/concerns at this time. . Delusions are denied. Patient's mood is anxious, Hallucinations are denied. Mental Health history: anxiety, Bipolar Disorder, depression, psychosis, Mental Health Admissions: Several in past to hospitals in [facility] and [place], also [facility]...all for "depression". Current Outpatient Mental Health Services: Therapist / Agency: [facility].. Current living environment is The patient currently lives with his / her significant other, . The patient is . Patient presents to Emergency Department with the following symptoms within the past 2 weeks: anxiety, depressed mood, sleep disturbance - erratic. Substance abuse: Pt denies. Mental status exam: Patients appearance is obese, Patient's behavior is cooperative, Speech is normal. Affect is appropriate. Mood is anxious. Hallucinations are denied. Appetite is normal. Memory is good. Energy level is tires easily. Content of thought is normal. Thought process is intact. Cognitive level is oriented to person, place, time and situation Patient's insight is good. Judgement is good. Rapport with interviewer is good. Suicidal Ideation is denied. Homicidal ideation is denied. 03:17 Disposition: Medically cleared for disposition by Moises Mckenna DO Psychiatric Consult cl is deferred per ED physician, Dr Mckenna. 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 [facility] Admission Criteria: Not Applicable. [place] Safe Act: [place] Safe [place] is not applicable because the patient does not display any suicidal or homicidal ideations and does not pose a risk to self or others. DSM-V Differential Diagnosis: Unspecified Anxiety Disorder (F41.9). Insurance Pre-Certification: Not Required. Vital Signs: 11/11 19:37 BP 218 / 106; Pulse 90; Resp 18; Temp 97.1; Pulse Ox 98% on R/A; Weight 176.9 kg; dem1 Height 6 ft. 3 in. (190.50 cm) (R); Pain 6/10; 19:53 BP 166 / 94 (auto/); af2 19:55 Pulse 76 MON; Pulse Ox 95% ; af2 20:18 BP 161 / 77 (auto/); af2 20:18 Pulse 78 MON; af2 20:23 BP 150 / 73 (auto/); af2 20:26 Pulse 84 MON; Pulse Ox 97% ; af2 20:43 Pulse 78 MON; Pulse Ox 95% ; af2 20:43 BP 179 / 98 (auto/); af2 20:53 BP 171 / 104 (auto/); af2 20:54 Pulse 78 MON; Resp 18 S; Pulse Ox 95% on R/A; af2 21:08 BP 171 / 109 (auto/); af2 21:09 Pulse 74 MON; Resp 18 S; Pulse Ox 95% on R/A; af2 22:14 BP 176 / 115 (auto/); af2 22:15 Pulse 68 MON; Resp 18 S; Pulse Ox 96% on R/A; af2 22:29 BP 158 / 77 (auto/); af2 22:30 Pulse 68 MON; Resp 18 S; Pulse Ox 96% on R/A; af2 22:44 BP 181 / 101 (auto/); af2 22:45 Pulse 68 MON; Resp 18 S; Pulse Ox 96% on R/A; af2 22:59 BP 179 / 102 (auto/); af2 23:00 Pulse 68 MON; Pulse Ox 95% ; af2 23:14 BP 178 / 113 (auto/); af2 23:14 Pulse 70 MON; af2 23:29 BP 176 / 91 (auto/); af2 23:29 Pulse 66 MON; af2 23:44 BP 170 / 89 (auto/); af2 23:45 Pulse 66 MON; Resp 18 S; af2 23:59 BP 169 / 102 (auto/); af2 01/06 00:00 Pulse 66 MON; af2 00:14 BP 170 / 104 (auto/); af2 00:15 Pulse 68 MON; af2 00:29 BP 169 / 107 (auto/); af2 00:30 Pulse 68 MON; af2 06:05 BP 198 / 102; Pulse 67; Resp 18; Pulse Ox 96% on R/A; slm 06:24 BP 187 / 99; slm 01/05 19:37 Body Mass Index 48.75 (176.90 kg, 190.50 cm) dem1 Vitals: 11/11 19:37 Log In Time: November 11, 2016 at 19:33. RN notified that patient meets Red Flag dem1 criteria. ED Course: 19:35 Patient visited by Wendy Levine. dem1 19:35 Patient moved to Waiting dem1 19:37 Rachna Valdes,RN is Primary Nurse. dem1 19:37 Patient moved to 10 dem1 19:41 Triage Initiated b 19:42 Moises Mckenna DO is Attending Physician. 11 19:42 Patient visited by Moises Mckenna DO. cs11 19:58 EKG done. (by ED staff). Reviewed by Moises Mckenna DO. mdr 19:59 Patient visited by Esteban Chambers PCA. mdr 20:11 The patient / caregiver is instructed regarding the plan of care and ED course. Cardiac af2 monitor on. Pulse ox on. NIBP on. 20:11 Missed attempts: 20 gauge X 2 in right antecubital area, in left antecubital area. af2 20:12 Patient visited by Rachna Valdes RN. af2 20:28 Inserted saline lock: 18 gauge in left antecubital area and blood collected. The nn1 patient tolerated the procedure well. 20:28 CBC Sent. nn1 20:28 MED Profile Sent. nn1 20:28 Pt & Aptt Sent. nn1 20:28 Cardiac Marker Panel Sent. nn1 20:28 Missed attempts: 20 gauge X 1 in left wrist. nn1 20:30 Patient visited by Rachna Valdes RN. af2 21:00 Patient visited by Rachna Valdes RN. af2 21:02 Patient visited by Rachna Valdes RN. af2 21:32 Patient visited by Rachna Valdes RN. af2 21:41 [facility] Payment Agreement was scanned into [employer] and attached to record. zo 22:03 Patient visited by Rachna Valdes RN. af2 22:03 Missed attempts: 18 gauge X 2 in right hand, in right antecubital area. kas2 22:18 Patient visited by Rachna Valdes RN. af2 22:29 Patient visited by Rachna Valdes RN. af2 22:53 Patient visited by Rachna Valdes RN. af2 22:54 Patient visited by Rachna Valdes RN. af2 23:00 Patient visited by Danna Mckenna PCA. ls3 23:00 EKG done. (by ED staff). Reviewed by Moises Mckenna DO. ls3 23:33 Patient visited by Rachna Valdes RN. af2 23:49 CT Chest Angio R/O PE Returned. EDMS 23:49 Chest, 1 View Returned. EDMS 23:54 Patient visited by Rachna Valdes RN. af2 11/12 00:28 Patient visited by Rachna Valdes RN. af2 00:32 Patient visited by Rachna Valdes RN. af2 00:33 EKG done. (by ED staff). Reviewed by Moises Mckenna DO. ls3 01:05 Patient visited by Rachna Valdes RN. af2 01:05 Cardiac Marker Panel Sent. af2 01:52 Patient moved to [facility]4 sls1 01:54 Patient visited by Rachna Valdes RN. af2 01:54 Discontinued IV lock intact, bleeding controlled, pressure dressing applied, No af2 redness/swelling at site. No procedures done that require assistance. 02:06 Patient visited by Isa Dowling LPN. slm 02:07 Patient moved to OBSERVATION cs11 02:13 Patient visited by Rachna Valdes RN. af2 02:15 Pt greeted and oriented to ED. Patient advised of names of staff involved in care, kb5 location of call srivastava, wait times and NPO status. Patient has correct armband on for positive identification. Placed in psych safe attire. Bed in low position. Call light in reach. Side rails up X 1. Security observing. Property removed, inventory done, secured in belongings bag- Placed in Locker 4. secure belongings bag, Secure bag Number [id number], Placed Locker 9. Patient not placed in psych safe attire prior to transfer to [facility] from room 10. . Door closed. Noise minimized. Visitors limited. Diet tray given. Warm blanket given. 02:30 Psych Safety Check: Location: Psych Room. Visual Assessment: Cooperative. kb5 02:45 Psych Safety Check: Location: Psych Room. Visual Assessment: Cooperative. kb5 03:00 Patient visited by Froilan Steele PCA. kb5 03:00 Psych Safety Check: Location: Psych Room. Visual Assessment: Cooperative. kb5 03:11 Patient visited by Isa Dowling LPN. slm 03:15 Psych Safety Check: Location: Psych Room. Visual Assessment: Cooperative. kb5 03:30 Psych Safety Check: Location: Psych Room. Visual Assessment: Cooperative. kb5 03:45 Patient visited by Froilan Steele PCA. kb5 03:45 Psych Safety Check: Location: Psych Room. Visual Assessment: Cooperative. kb5 03:55 Patient visited by Isa Dowling LPN. slm 04:00 Psych Safety Check: Location: Psych Room. Visual Assessment: Cooperative. kb5 04:11 Patient visited by Froilan Steele RADIOCOMMUNICATIONS TECHNICIAN. kb5 04:15 Psych Safety Check: Location: Psych Room. Visual Assessment: Cooperative. kb5 04:18 Patient visited by Ana Steeleopher, RADIOCOMMUNICATIONS TECHNICIAN. kb5 04:30 Patient visited by Ana Steeleopher RADIOCOMMUNICATIONS TECHNICIAN. kb5 04:30 Psych Safety Check: Location: Psych Room. Visual Assessment: Cooperative. kb5 04:45 Patient visited by Froilan Steele RADIOCOMMUNICATIONS TECHNICIAN. kb5 04:45 Psych Safety Check: Location: Psych Room. Visual Assessment: Cooperative. kb5 05:00 Psych Safety Check: Location: Psych Room. Visual Assessment: Cooperative. kb5 05:06 Patient visited by Froilan Steele RADIOCOMMUNICATIONS TECHNICIAN. kb5 05:15 Psych Safety Check: Location: Psych Room. Visual Assessment: Cooperative. kb5 05:20 Patient visited by Froilan Steele RADIOCOMMUNICATIONS TECHNICIAN. kb5 05:30 Patient visited by Froilan Steele RADIOCOMMUNICATIONS TECHNICIAN. kb5 05:30 Psych Safety Check: Location: Psych Room. Visual Assessment: Cooperative. kb5 05:45 Psych Safety Check: Location: Psych Room. Visual Assessment: Cooperative. kb5 05:49 Patient visited by Froilan Steele RADIOCOMMUNICATIONS TECHNICIAN. kb5 06:00 Psych Safety Check: Location: Psych Room. Visual Assessment: Cooperative. kb5 06:06 Patient visited by Isa Dowling LPN. slm 06:06 Patient visited by Froilan Steele RADIOCOMMUNICATIONS TECHNICIAN. kb5 06:15 Psych Safety Check: Location: Psych Room. Visual Assessment: Cooperative. kb5 06:20 Patient visited by Froilan Steele PCA. kb5 06:25 Patient visited by Isa Dowling LPN. slm 06:52 T-Sheet-- Draft Copy was scanned into [employer] and attached to record. gb 10:48 ECG/EKG was scanned into [employer] and attached to record. gb 10:52 ECG/EKG was scanned into [employer] and attached to record. gb 10:56 Radiology Report was scanned into [facility] and attached to record. gb 11/13 08:38 EKG-ADULT Returned. EDMS 08:38 EKG-ADULT Returned. EDMS 08:38 EKG-ADULT Returned. EDMS 12:50 ECG/EKG was scanned into [employer] and attached to record. gb Administered Medications: 11/11 20:29 Drug: Metoprolol 25 mg [metoprolol tartrate 25 mg tablet (1 tabs)] Route: PO; af2 21:01 Drug: morphine 4 mg [morphine 4 mg/mL intravenous cartridge (1 mL)] Route: IVP; Site: af2 left antecubital; 22:17 Drug: Potassium Chloride 40 mEq [potassium chloride ER 10 mEq tablet,extended release af2 (4 tabs)] Route: PO; 23:23 Drug: morphine 4 mg [morphine 4 mg/mL intravenous cartridge (1 mL)] Route: IVP; Site: af2 left upper arm; 11/12 01:21 Drug: Dilaudid - HYDROmorphone 1 mg [hydromorphone 1 mg/mL injection syringe (1 mL)] af2 Route: IVP; Site: left upper arm; 06:04 Drug: cloNIDine 0.2 mg [clonidine HCl 0.2 mg tablet (1 tabs)] Route: PO; slm Order Results: Lab Order: CBC; SPEC'M 11/11/16 20:24 Test: WHITE BLOOD COUNT; Value: 8.0; Range: 4.0-10.0; Units: K/mm3; Status: F Test: RED BLOOD COUNT; Value: 5.01; Range: 4.30-6.10; Units: M/mm3; Status: F Test: HEMOGLOBIN; Value: 14.7; Range: 14.0-18.0; Units: g/dl; Status: F Test: HEMATOCRIT; Value: 43.8; Range: 42.0-52.0; Units: %; Status: F Test: MEAN CORPUSCULAR VOLUME; Value: 87.5; Range: 80.0-96.0; Units: fl; Status: F Test: MEAN CORPUSCULAR HEMOGLOBIN; Value: 29.3; Range: 27.0-33.0; Units: pg; Status: F Test: MEAN CORPUSCULAR HGB CONC; Value: 33.5; Range: 32.0-36.5; Units: g/dl; Status: F Test: RED CELL DISTRIBUTION WIDTH; Value: 14.2; Range: 11.5-14.5; Units: %; Status: F Test: PLATELET COUNT, AUTOMATED; Value: 168; Range: 150-450; Units: k/mm3; Status: F Lab Order: MED Profile; SPEC'M 11/11/16 20:24 Test: GLUCOSE, FASTING; Value: 109; Range: 70-105; Abnormal: Above high normal; Units: MG/DL; Status: F Test: BLOOD UREA NITROGEN; Value: 10; Range: 7-18; Units: MG/DL; Status: F Test: CREATININE FOR GFR; Value: 0.88; Range: 0.70-1.30; Units: MG/DL; Status: F Test: GLOMERULAR FILTRATION RATE; Value: > 60.0; Range: >56; Status: F Test: SODIUM LEVEL; Value: 142; Range: 136-145; Units: MEQ/L; Status: F Test: POTASSIUM SERUM; Value: 3.3; Range: 3.5-5.1; Abnormal: Below low normal; Units: MEQ/L; Status: F Test: CHLORIDE LEVEL; Value: 107; Range: 98-107; Units: MEQ/L; Status: F Test: CARBON DIOXIDE LEVEL; Value: 26; Range: 21-32; Units: MEQ/L; Status: F Test: ANION GAP; Value: 9; Range: 8-16; Units: MEQ/L; Status: F Test: CALCIUM LEVEL; Value: 8.4; Range: 8.5-10.1; Abnormal: Below low normal; Units: MG/DL; Status: F Test Note: ; Units are mL/min/1.73 m2 Chronic Kidney Disease Staging per NKF: Stage I & II GFR >=60 Normal to Mildly Decreased Stage III GFR 30-59 Moderately Decreased Stage IV GFR 15-29 Severely Decreased Stage V GFR <15 Very Little GFR Left ESRD GFR <15 on [facility] Lab Order: Pt & Aptt; SPEC'M 11/11/16 20:24 Test: PROTHROMBIN TIME; Value: 12.7; Range: 12.3-14.5; Units: SECONDS; Status: F Test: INR; Value: 0.94; Status: F Test: PARTIAL THROMBOPLASTIN TIME; Value: 26.1; Range: 26.6-37.1; Abnormal: Below low normal; Units: SECONDS; Status: F Test Note: ; THERAPUTIC HUMAN INR VALUES INDICATIONS NORMAL RANGES PROPHYLAXIS/TREATMENT OF: VENOUS THROMBOSIS 2.0-3.0 PULMONARY EMBOLISM 2.0-3.0 PREVENTION OF SYSTEMIC EMBOLISM FROM: TISSUE HEART VALVES 2.0-3.0 ACUTE MYOCARDIAL INFARCTION 2.0-3.0 VALVULAR HEART DISEASE 2.0-3.0 ATRIAL FIBRILLATION 2.0-3.0 MECHANICAL VALVES(HIGH RISK) 2.5-3.5 RECURRENT MYOCARDIAL INFARCTION 2.5-3.5 Lab Order: Cardiac Marker Panel; SPEC'M 11/11/16 20:24 Test: CPK CREATINE PHOSPHOKINASE; Value: 158; Range: 39-308; Units: U/L; Status: F Test: CK-MB VALUE MASS; Value: 1.3; Range: 0.0-3.6; Units: NG/ML; Status: F Test: MB/CK RELATIVE INDEX; Value: 0.82; Range: < OR =4; Status: F Test: TROPONIN I; Value: < 0.02; Range: < 0.10; Units: NG/ML; Status: F Test Note: ; DIAGNOSIS CRITERIA MMB ng/ml Relative Index (RI) NON-AMI < or = 5 N/A CERVANTES ZONE > 5 < or = 4 AMI > 5 > 4 Lab Order: Cardiac Marker Panel; SPEC'M 11/12/16 00:57 Test: CPK CREATINE PHOSPHOKINASE; Value: 137; Range: 39-308; Units: U/L; Status: F Test: CK-MB VALUE MASS; Value: 1.3; Range: 0.0-3.6; Units: NG/ML; Status: F Test: MB/CK RELATIVE INDEX; Value: 0.94; Range: < OR =4; Status: F Test: TROPONIN I; Value: < 0.02; Range: < 0.10; Units: NG/ML; Status: F Test Note: ; DIAGNOSIS CRITERIA MMB ng/ml Relative Index (RI) NON-AMI < or = 5 N/A CERVANTES ZONE > 5 < or = 4 AMI > 5 > 4 Radiology Order: EKG-ADULT Test: EKG-ADULT REASON FOR EXAMINATION: Chest Pain; Stationary ECG Study; [facility] ED; ; Test Date: 2016-11-11; Pat Name: TON MO Department:; Room: -; Gender: M Field Enumerator: angie : 1965 Requested By: MOISES MCKENNA; Order Number: [id number] Reading MD: Nitza Seo; Measurements; Intervals [place]; Rate: 76 P: 25; WY: 168 QRS: 44; QRSD: 111 T: 54; QT: 408; QTc: 461; Interpretive Statements; SINUS RHYTHM; MODERATE INTRAVENTRICULAR CONDUCTION DELAY; NONSPECIFIC T-WAVE ABNORMALITY, CLINICAL CORRELATION; NO PRIOR FOR COMPARISON; ; Electronically Signed On 11-13-2016 8:23:15 EST by Nitza Seo; Radiology Order: Chest, 1 View Test: Chest, 1 View REASON FOR EXAMINATION: Chest Pain; Clinical: Chest pain .; ; Comparison: None.; ; Findings:; The mediastinum and cardiac silhouette are stable and within normal limits for; portable technique. The lung guerra are clear without acute consolidation,; effusion, or pneumothorax. Skeletal structures are intact.; ; Impression:; No acute consolidation or cardiopulmonary process appreciated.; ; ; Signed by; Victor M Smith MD 11/11/2016 11:11 P; Radiology Order: CT Chest Angio R/O PE Test: CT Chest Angio R/O PE REASON FOR EXAMINATION: Chest Pain; ; CT angiogram of the chest; Clinical statement: Chest pain and shortness of breath.; Technique: Multiple axial CT images were obtained from the thoracic inlet through the upper abdomen a; fter a bolus administration of nonionic intravenous contrast. Coronal and sagittal reconstructions we; re also obtained.; No comparison is available.; Findings: The pulmonary arteries are well-opacified with contrast, with no intraluminal filling defec; ts to suggest embolism. The thoracic aorta is unremarkable. Thyroid gland is within normal limits. Th; ere is no thoracic lymphadenopathy. There are no pericardial or pleural effusions. The lungs are cheryl; r. Limited imaging of the upper abdomen is unremarkable. There are large simple bilateral renal cysts; . There are no suspicious osseous lesions.; Impression: Unremarkable CT examination of the chest. 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:; : 1965 Requested By: MOISES MCKENNA; Order Number: [id number] Reading MD: Nitza Seo; Measurements; Intervals [place]; Rate: 68 P: 67; [place]: 198 QRS: 36; QRSD: 104 T: 97; QT: 388; QTc: 415; Interpretive Statements; SINUS RHYTHM; NONSPECIFIC T-WAVE ABNORMALITY SIMIILAR 11/11/16 CLINICAL CORRELATION; ANTEROSEPTAL; CHANGES FOR ISCHEMIA; ; Electronically Signed On 11-13-2016 8:24:58 EST by Nitza Seo; Radiology Order: EKG-ADULT Test: EKG-ADULT REASON FOR EXAMINATION: Chest Pain; Stationary ECG Study; [facility] ED; ; Test Date: 2016-11-12; Pat Name: [facility] Department:; Room: -; 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 slm 04:53 Discharge ordered by Provider. cs11 06:06 No special radiology studies were completed. slm 06:24 Discharge Assessment: Patient awake, alert and oriented x 3. No cognitive and/or slm functional deficits noted. Patient verbalized understanding of disposition instructions. Patient awake and alert. patient administered narcotics - yes. Pt provided with safe discharge. The following High Risk Discharge criteria are identified: Yes, pt seen by Akil Carlson and no concerns by given a cab slip to bus station to return home . Discharged to home ambulatory. Condition: good Condition: improved. Discharge instructions given to patient, Instructed on discharge instructions, follow up and referral plans. Demonstrated understanding of instructions, Pt was receptive of discharge instructions/ teaching. 06:25 Patient left the ED. slm Signatures: Dispatcher [employer] EDMS Timothy, Candelario, PSA PSA cl Lalitha Rangel, Reg Reg gb Jd Viveros Kristopher, RADIOCOMMUNICATIONS TECHNICIAN RADIOCOMMUNICATIONS TECHNICIAN kb5 Padmini Keith, RN RN sls1 Wendy Levine dem1 Moises Mckenna, DO cs11 Pillo Grider,RN RN jmb Isa Dowling,JOB SPOTTER JOB SPOTTER Rachna Cooper,RN RN af2 Kala Angel,RN RN nn1 Danna Mckenna, RADIOCOMMUNICATIONS TECHNICIAN RADIOCOMMUNICATIONS TECHNICIAN ls3 Esteban Chambers, RADIOCOMMUNICATIONS TECHNICIAN RADIOCOMMUNICATIONS TECHNICIAN mdr Nguyen Moon,RN RN kas2 Chart Complete MTDD
--- NOTE | 2016-11-14 07:27 | EDDOCDS ---
Physician Documentation [facility] Name: Robinson Barajas Age: 51 yrs Sex: Male : 1965 Arrival Date: 11/11/2016 Time: 19:34 Bed OBSERVATION Private MD: Disposition: 11/12/16 04:53 Discharged to Home/Self Care. Impression: Chest pain, unspecified, Unspecified mood [affective] disorder. - Condition is Stable. - Medication Reconciliation, Local Pharmacy Hours form. - Follow up: Private Physician; When: Call to arrange an appointment; Reason: Recheck today's complaints. - Problem is chronic. - Symptoms have improved. Historical: - Allergies: Geodon; Latex, Natural Rubber; Nitroglycerin; Tylenol; Motrin; Prolixin; turkey (Anaphylaxis); - Home Meds: 1. aspirin 81 mg Oral TbEC 1 tab once daily 2. Coreg 25 mg Oral tab 1 tab 2 times per day 3. Ativan 1 mg Oral tab 1 tab 3 times per day 4. Celexa 20 mg Oral tab 1 tab once daily - PMHx: Depression; Hypertension; Anxiety; - PSHx: umbilical hernia repair; - Social history: Smoking status: Patient uses tobacco products, heavy tobacco smoker. No barriers to communication noted, The patient speaks fluent Turkmen, Speaks appropriately for age. - Family history: Not pertinent. - : The pt / caregiver states he / she is not on anticoagulants. Home medication list is obtained from the patient. - Exposure Risk Screening:: None identified. Vital Signs: 11/11 19:37 BP 218 / 106; Pulse 90; Resp 18; Temp 97.1; Pulse Ox 98% on R/A; Weight 176.9 kg / 390 dem1 lbs; Height 6 ft. 3 in. (190.50 cm) (R); Pain 6/10; 19:53 BP 166 / 94 (auto/); af2 19:55 Pulse 76 MON; Pulse Ox 95% ; af2 20:18 BP 161 / 77 (auto/); af2 20:18 Pulse 78 MON; af2 20:23 BP 150 / 73 (auto/); af2 20:26 Pulse 84 MON; Pulse Ox 97% ; af2 20:43 Pulse 78 MON; Pulse Ox 95% ; af2 20:43 BP 179 / 98 (auto/); af2 20:53 BP 171 / 104 (auto/); af2 20:54 Pulse 78 MON; Resp 18 S; Pulse Ox 95% on R/A; af2 21:08 BP 171 / 109 (auto/); af2 21:09 Pulse 74 MON; Resp 18 S; Pulse Ox 95% on R/A; af2 22:14 BP 176 / 115 (auto/); af2 22:15 Pulse 68 MON; Resp 18 S; Pulse Ox 96% on R/A; af2 22:29 BP 158 / 77 (auto/); af2 22:30 Pulse 68 MON; Resp 18 S; Pulse Ox 96% on R/A; af2 22:44 BP 181 / 101 (auto/); af2 22:45 Pulse 68 MON; Resp 18 S; Pulse Ox 96% on R/A; af2 22:59 BP 179 / 102 (auto/); af2 23:00 Pulse 68 MON; Pulse Ox 95% ; af2 23:14 BP 178 / 113 (auto/); af2 23:14 Pulse 70 MON; af2 23:29 BP 176 / 91 (auto/); af2 23:29 Pulse 66 MON; af2 23:44 BP 170 / 89 (auto/); af2 23:45 Pulse 66 MON; Resp 18 S; af2 23:59 BP 169 / 102 (auto/); af2 01 00:00 Pulse 66 MON; af2 00:14 BP 170 / 104 (auto/); af2 00:15 Pulse 68 MON; af2 00:29 BP 169 / 107 (auto/); af2 00:30 Pulse 68 MON; af2 06:05 BP 198 / 102; Pulse 67; Resp 18; Pulse Ox 96% on R/A; slm 06:24 BP 187 / 99; slm 11/11 19:37 Body Mass Index 48.75 (176.90 kg, 190.50 cm) dem1 MDM: 11/11 19:40 ECG WITH READING ER PHYS+CARDIAG ordered. EDMS 19:43 IV Saline Lock ordered. cs11 19:44 CBC Ordered. EDMS 19:44 MED Profile Ordered. EDMS 19:44 Pt & Aptt Ordered. EDMS 19:44 Cardiac Marker Panel Ordered. EDMS 19:45 Chest, 1 View Ordered. EDMS 20:18 Metoprolol (Tartrate) 25 mg PO once ordered. cs11 20:55 morphine 4 mg IVP once ordered. cs11 21:26 MED Profile Reviewed. cs11 21:26 Pt & Aptt Reviewed. cs11 21:26 CBC Reviewed. cs11 21:26 Cardiac Marker Panel Reviewed. cs11 21:27 Potassium Chloride Extended Release Tablet 40 mEq PO once ordered. cs11 21:28 CT Chest Angio R/O PE Ordered. EDMS 21:34 Financial registration complete. zo 21:41 [facility] [place] was scanned into [employer] and attached to record. zo 22:51 ECG WITH READING ER PHYS+CARDIAG ordered. EDMS 23:11 morphine 4 mg IVP once ordered. cs11 11/12 00:20 ECG WITH READING ER PHYS+CARDIAG ordered. EDMS 00:21 Cardiac Marker Panel Ordered. EDMS 01:04 Dilaudid - HYDROmorphone 1 mg IVP once ordered. cs11 01:45 Cardiac Marker Panel Reviewed. cs11 01:45 Chest, 1 View Reviewed. cs11 01:45 CT Chest Angio R/O PE Reviewed. cs11 01:46 Consult PFS/PSA/Socail Worker: Cleared medically for eval ordered. cs11 02:38 Consult PFS/PSA/Socail Worker: Cleared medically for eval complete. cl 04:59 REGULAR DIET PLASTIC RODAS+DIET ordered. EDMS 06:01 cloNIDine 0.2 mg PO once ordered. cs11 06:52 T-Sheet-- Draft Copy was scanned into [employer] and attached to record. gb 10:48 ECG/EKG was scanned into [employer] and attached to record. gb 10:52 ECG/EKG was scanned into [employer] and attached to record. gb 10:56 Radiology Report was scanned into [employer] and attached to record. gb 11/13 12:50 ECG/EKG was scanned into [employer] and attached to record. gb Administered Medications: 11/11 20:29 Drug: Metoprolol 25 mg [metoprolol tartrate 25 mg tablet (1 tabs)] Route: PO; af2 21:01 Drug: morphine 4 mg [morphine 4 mg/mL intravenous cartridge (1 mL)] Route: IVP; Site: af2 left antecubital; 22:17 Drug: Potassium Chloride 40 mEq [potassium chloride ER 10 mEq tablet,extended release af2 (4 tabs)] Route: PO; 23:23 Drug: morphine 4 mg [morphine 4 mg/mL intravenous cartridge (1 mL)] Route: IVP; Site: af2 left upper arm; 11/12 01:21 Drug: Dilaudid - HYDROmorphone 1 mg [hydromorphone 1 mg/mL injection syringe (1 mL)] af2 Route: IVP; Site: left upper arm; 06:04 Drug: cloNIDine 0.2 mg [clonidine HCl 0.2 mg tablet (1 tabs)] Route: PO; [facility] Signatures: Dispatcher [employer] EDMS Candelario Aguirre, PSA PSA cl [place], Lalitha, Reg Reg gb Felice, Darius Briceno DO DO cs11 Pillo Grider,RN RN Isa Wren,ANESTHESIOLOGY FACULTY ANESTHESIOLOGY FACULTY slm Rachna Valdes,[facility] RN af2 The chart was reviewed and I authenticate all verbal orders and agree with the evaluation and treatment provided.Attachments: 11/11 21:41 [facility] [place] Agreement zo 11/12 06:52 T-Sheet-- Draft Copy gb 10:48 ECG/EKG gb 10:52 ECG/EKG gb 11/13 12:50 ECG/EKG gb Chart Complete MTDD
== END 2016-11-12 06:25 | disposition home or self-care (01) ==
LOC: M ED 19:34
DX: F32.9 Major depressive disorder, single episode, unspecified (principal); R07.9 Chest pain, unspecified; F41.9 Anxiety disorder, unspecified; I10 Essential (primary) hypertension; Z72.0 Tobacco use; Z79.82 Long term (current) use of aspirin; Z79.899 Other long term (current) drug therapy; Z88.6 Allergy status to analgesic agent; Z88.8 Allergy status to other drugs, medicaments and biological substances; Z91.040 Latex allergy status; Z91.018 Allergy to other foods; Z91.09 Other allergy status, other than to drugs and biological substances
CPT/HCPCS: 36415; 71010; 71275; 80048; 82550; 82553; 84484; 85027; 85610; 85730; 93005; 99285; J1170; Q9967